=== PATIENT | male | born 1970 | race Caucasian/White ===

== ENCOUNTER 2016-08-08 08:56 | Emergency (ER) | payer BC ==
[2016-08-08 09:18] VITALS: BP 158/109
--- OUTSIDE RECORDS SUMMARY | 2016-08-08 10:16 | XMS REPORT | Continuity of Care Document ---
:1970 Author Organization [facility] ([facility]) Address [address] [place] [address] Phone [phone] Care Team Providers Name Role Phone Maurisio Méndez Primary Care Provider [phone] Source Comments This disclosure is being made pursuant to the Care Everywhere program, applicable federal and state laws, and may not contain all informaitonavailable regarding this patient.[facility] ([facility]) Active Allergies and Adverse Reactions Not on File Current Medications Not on file Active Problems Problem Noted Date Pain in limb 07/28/2007 Social History Tobacco Use Types Packs/Day Years Used Date Never Assessed Last Filed Vital Signs Vital Sign Reading Time Taken Blood Pressure - - Pulse - - Temperature - - Respiratory Rate - - Height 1.803 m (5' 10.98") 07/21/2000 3:18 PM CDT Weight 99.796 kg (220 lb 0.2 oz) 07/21/2000 3:18 PM CDT Body Mass Index 30.7 07/21/2000 3:18 PM CDT Oxygen Saturation - - Plan of Care Health Maintenance Due Date Last Done Comments Hepatitis B Vaccine (1 of 3 - Primary Series) 1970 Tdap Vaccine 1979 Lipid Disorder Screening 1986 MMR Vaccine 1986 Td Vaccine 1986 Influenza Vaccine: Seasonal (#1) 10/23/2015 Results from Last 3 Months Not on file
[2016-08-08 10:31] LABS: Hematocrit 44.1 % (42.0-52.0); Hemoglobin 16.3 gm/dL (13.5-18.0); Mean Cell Volume 86.5 fl (78-100); Mean Platelet Volume 9.3 fl (6.0-9.5); Neutrophil # 3.3 K/mm3 (1.3-6.0); Neutrophil % 62.1 % (42-75.0); Platelet Count 192 K/mm3 (150-450); Red Cell Distribution Width 12.3 % (11.5-14.0); White Blood Count 5.4 K/mm3 (4.0-10.5)
[2016-08-08 10:46] LABS: Urine Bilirubin Negative (NEGATIVE); Urine Blood Negative /ul (NEGATIVE); Urine Ketone Negative (NEGATIVE); Urine Nitrite Negative (NEGATIVE); Urine Protein 15 mg/dL (NEGATIVE); Urine Specific Gravity 1.025 SP.GR. (1.005-1.030); Urine Urobilinogen Normal (NORMAL)
[2016-08-08 10:54] LABS: Urine Appearance Clear; Urine Color Dark Yellow
[2016-08-08 10:55] LABS: ALT 67 U/L (19-67); AST 33 U/L (0-48); Albumin * 3.9 gm/dl (3.4-5.0); Alkaline Phosphatase * 113 U/L (50-170); Anion Gap 8.9 mmol/L (6.8-13.8); BUN/Creatinine Ratio 11.8 (9.0-21.6); Bilirubin, Total 0.5 mg/dL (0.0-1.1); Blood Urea Nitrogen 11 mg/dL (6-23); Ca. Corrected For Albumin 8.5 mg/dL (8.4-10.2); Calcium * 8.7 mg/dL (7.9-10.9); Chloride 103 mmol/L (97-106); Glucose * 103 mg/dL (70-110); Potassium 3.9 mmol/L (3.4-4.6); Salicylate Less than 2.8 mg/dL (2.8-20.0); Sodium 139 mmol/L (132-142); TSH * 1.781 uIU/mL (0.358-3.74); Total Protein 7.7 gm/dL (6.2-8.2)
[2016-08-08 10:55] LABS: Urine Bacteria None Seen; Urine RBC None Seen /hpf (0-5); Urine WBC 0-5 /hpf (0-5)
[2016-08-08 10:58] LABS: Cocaine Ur Negative (NEGATIVE); Urine Barbiturate Negative (NEGATIVE); Urine Benzodiazepines Negative (NEGATIVE); Urine Opiates Negative (NEGATIVE); Urine PCP Negative (NEGATIVE); Urine THC Negative (NEGATIVE)
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
== END 2016-08-08 14:18 | disposition home or self-care (01) ==
LOC: ER 08:56
DX: F32.9 Major depressive disorder, single episode, unspecified (principal)
CPT/HCPCS: 36415; 80053; 80307; 81001; 84443; 85025; 99284; G0480; G0481

== ENCOUNTER 2016-09-09 22:46 | Emergency (ER) | payer BC ==
[2016-09-09 23:54] LABS: Hematocrit 43.2 % (42.0-52.0); Hemoglobin 15.8 gm/dL (13.5-18.0); Mean Cell Volume 86.7 fl (78-100); Mean Corpuscular Hemoglobin 31.7 pg (27-31); Mean Corpuscular Hgb Conc 36.6 g/dl (32-36); Mean Platelet Volume 9.3 fl (6.0-9.5); Neutrophil % 59.6 % (42-75.0); Platelet Count 238 K/mm3 (150-450); Red Blood Count 4.98 M/mm3 (4.7-6.0)
[2016-09-10 00:22] LABS: ALT 57 U/L (19-67); AST 41 U/L (0-48); Albumin * 3.8 gm/dl (3.4-5.0); Alkaline Phosphatase * 98 U/L (50-170); Anion Gap 13.9 mmol/L (6.8-13.8); Bilirubin, Total 0.3 mg/dL (0.0-1.1); Blood Urea Nitrogen 11 mg/dL (6-23); Ca. Corrected For Albumin 8.5 mg/dL (8.4-10.2); Calcium * 8.7 mg/dL (7.9-10.9); Carbon Dioxide 25.5 mmol/L (24-32.6); Chloride 105 mmol/L (97-106); Glucose * 107 mg/dL (70-110); Potassium 3.4 mmol/L (3.4-4.6); Salicylate Less than 2.8 mg/dL (2.8-20.0); Sodium 141 mmol/L (132-142); TSH * 1.259 uIU/mL (0.358-3.74); Total Protein 7.6 gm/dL (6.2-8.2)
[2016-09-10 00:42] LABS: Urine Bilirubin Negative (NEGATIVE); Urine Blood Negative /ul (NEGATIVE); Urine Ketone Negative (NEGATIVE); Urine Nitrite Negative (NEGATIVE); Urine Protein Negative (NEGATIVE); Urine Specific Gravity <=1.005 SP.GR. (1.005-1.030); Urine Urobilinogen Normal (NORMAL)
[2016-09-10 00:47] LABS: Urine Appearance Clear; Urine Color Pale Yellow
[2016-09-10 00:51] LABS: Urine Bacteria None Seen; Urine RBC None Seen /hpf (0-5); Urine WBC None Seen /hpf (0-5)
[2016-09-10 01:01] LABS: Cocaine Ur Negative (NEGATIVE); Urine Barbiturate Negative (NEGATIVE); Urine Benzodiazepines Negative (NEGATIVE); Urine Opiates Negative (NEGATIVE); Urine PCP Negative (NEGATIVE); Urine THC Negative (NEGATIVE)
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
[2016-09-10 07:40] VITALS: BP 137/74
== END 2016-09-10 08:52 | disposition home or self-care (01) ==
LOC: ER 22:46
DX: F10.221 Alcohol dependence with intoxication delirium (principal); R45.851 Suicidal ideations; F32.9 Major depressive disorder, single episode, unspecified; Z87.891 Personal history of nicotine dependence
CPT/HCPCS: 36415; 80053; 80307; 81001; 84443; 85025; 99282; G0480; G0481

== ENCOUNTER 2016-11-12 15:42 | Emergency (ER) | payer BC ==
--- NOTE | 2016-11-12 16:45 | ERNOTE ---
Lower Extremity HPI - Narrative Date of Service: 11/12/16 - General Lower Extremities Pain: knee: left Time Seen by Provider: 11/12/16 16:22 Source: patient Exam Limitations: no limitations - Immun/Allergies/Home Medications Immunizations: IMMUNIZATION HX Immunizations Up to Date Yes History of Influenza Vaccine No Hx Pneumococcal Vaccination No Allergies/Adverse Reactions: Allergies Allergy/AdvReac Type Severity Reaction Status Date / Time No Known Allergies Allergy Verified 11/12/16 15:50 Home Medications: HOME MEDICATIONS oxyCODONE HCL/ACETAMINOPHEN [Percocet 5 MG/325 MG] 1 tab PO Q4H PRN #10 tab [Last Taken Unknown] - History of Present Illness Narrative: Pt. comes in with c/o L knee pain for three days and an open sore on his BKA stump for three weks that his primary has been treating and states that as soon as he ends treatment the sore returns. Pt. denies any fevers, recent illness or injury and states taht pain feels similar t pain that he has had in the past and is treated with a burst of percocet and resolves with this. Review of Systems - Review of Systems Constitutional: Present: no symptoms reported. Absent: recent illness, fever, chills, weakness, fatigue, malaise EYE: Present: no symptoms reported ENT: Present: no symptoms reported Respiratory: Present: no symptoms reported. Absent: shortness of breath, cough , wheezing Cardiology: Present: no symptoms reported. Absent: chest pain, palpitations, edema Gastrointestinal/Abdominal: Present: no symptoms reported. Absent: nausea, vomiting, diarrhea Genitourinary: Present: no symptoms reported. Absent: frequency, decreased urinary output Musculoskeletal: Present: joint pain - L knee. Absent: back pain Skin: Present: lesions - distal L leg stump pressure ulcer partial thickness open with yellow crusting drainage. Neurological: Present: no symptoms reported. Absent: headache, dizziness/light- headedness, numbness, tingling All Other Systems: All systems neg except as marked - Patient's Past Medical History Patient History - Medical: No pertinent hx, Depression Patient History - Cardiac/Respiratory: No pertinent hx Patient History - Cancer: No Hx of Cancer Patient History - Surgical Procedures: Amputation, Other Patient History - Other: None - Social History Living Situations: home Abuse History: No History of abuse Psych History: No pertinent hx, Hx of Anxiety, Hx of Depression Smoking Status: Never smoker Alcohol Use: occasionally Drug Use: none - Immunizations Immunizations Up to Date: Yes Hx Pneumococcal Vaccination: No History of Influenza Vaccine: No Physical Exam - Physical Exam General Appearance: Present: wd/wn, alert, no apparent distress Head Exam: Present: normal inspection, no evidence of injury Eye Exam: Normal inspection: bilateral Respiratory: Present: no respiratory distress, normal breath sounds, no accessory muscle use, chest nontender, lungs clear Cardiovascular/Chest: Present: regular rate, rhythm, no murmur, normal peripheral pulses Back Exam: Present: normal inspection, normal range of motion, no CVA tenderness , no vertebral tenderness Extremity Exam: Present: normal range of motion, joint swelling - L latral knee , other - softtissue swelling, redness and satge 2 pressure ulcer diastal stump with crusting yellow drainage Neurological Exam: Present: alert, oriented, normal mood/affect, no motor/ sensory deficits Skin Exam: Present: normal color, warm/dry. Absent: pallor, skin rash ED Progress - Date and Time Seen: Date and Time: 11/12/16 16:42 Pt. gel stump shaper with defect in it that is the same place as the pressure ulcer on his stump therefore I feel that the stump shaper has to do with the injury to the stump. Will write script for new stump shaper and give him a days worth of narcotics. - Vital Signs Patient's Vital Signs:: I have reviewed the patient's vital signs. Vital Signs: Vital Signs 11/12/16 15:47 Temperature 36.0 C L Pulse Rate 94 Respiratory 16 Rate Blood Pressure 138/99 O2 Sat by Pulse 98 Oximetry - Progress/Reassessment Chief Complaint: Lower Extremity Pain/ Injury Departure Clinical Impression: Phantom pain after amputation of lower extremity, Pressure ulcer caused by device - Departure Disposition: Home self-care Condition: Good Instructions: How to Prevent Pressure Injuries, Living With an Amputation, Neuropathic Pain Additional Instructions: please follow up with prosthestatis tomorrow and follow up with PCP tomorrow to discuss pain management and get new gel stump shaper. Referrals: Maurisio Millan MD [Primary Care Provider] - Prescriptions: oxyCODONE HCL/ACETAMINOPHEN [Percocet 5 MG/325 MG] 1 tab PO Q4H PRN #10 tab PRN Reason: Pain
[2016-11-12 16:46] LABS: Hematocrit 49.9 % (42.0-52.0); Mean Cell Volume 86.5 fl (78-100); Mean Corpuscular Hemoglobin 31.2 pg (27-31); Mean Corpuscular Hgb Conc 36.1 g/dl (32-36); Mean Platelet Volume 9.3 fl (6.0-9.5); Neutrophil # 3.7 K/mm3 (1.3-6.0); Neutrophil % 61.9 % (42-75.0); Platelet Count 210 K/mm3 (150-450); Red Blood Count 5.77 M/mm3 (4.7-6.0); Red Cell Distribution Width 12.5 % (11.5-14.0)
[2016-11-12 16:58] LABS: Albumin * 3.8 gm/dl (3.4-5.0); Anion Gap 13.9 mmol/L (6.8-13.8); BUN/Creatinine Ratio 14.3 (9.0-21.6); Bilirubin, Total 0.5 mg/dL (0.0-1.1); Ca. Corrected For Albumin 9.1 mg/dL (8.4-10.2); Calcium * 9.3 mg/dL (7.9-10.9); Potassium 3.9 mmol/L (3.4-4.6); Total Protein 7.6 gm/dL (6.2-8.2)
[2016-11-12 17:55] VITALS: BP 152/99
== END 2016-11-12 17:48 | disposition home or self-care (01) ==
LOC: ER 15:42
DX: G54.6 Phantom limb syndrome with pain (principal); L89.899 Pressure ulcer of other site, unspecified stage; T87.89 Other complications of amputation stump; Z89.612 Acquired absence of left leg above knee

== ENCOUNTER 2017-02-22 18:03 | Emergency (ER) | payer BC ==
[2017-02-22] MEDS ORDERED: KETOROLAC TROMETHAMINE 60 MG/2 ML VIAL IM ONE ×2 (18:34→18:35)
[2017-02-22] MEDS ORDERED: ORPHENADRINE CITRATE 30 MG/ML VIAL IM ONE (18:34)
[2017-02-22] MEDS ORDERED: ORPHENADRINE CITRATE 30 MG/ML VIAL ONE (18:35)
--- NOTE | 2017-02-22 18:43 | ERNOTE ---
Back Pain ER HPI Date of Service: 02/22/17 Presenting Symptoms: injury/pain to back Time Seen by Provider: 02/22/17 18:23 Source: patient, RN notes reviewed Exam Limitations: no limitations Immunizations: IMMUNIZATION HX Immunizations Up to Date No: unknown History of Influenza Vaccine No Hx Pneumococcal Vaccination No Allergies/Adverse Reactions: Allergies No Known Allergies Allergy (Verified 11/12/16 15:50) Home Medications: HOME MEDICATIONS Cyclobenzaprine HCl [Flexeril] 10 mg PO TID PRN #20 tab 02/22/17 [Last Taken Unknown] oxyCODONE HCL/ACETAMINOPHEN [Percocet 5 MG/325 MG] 1 - 2 tab PO Q6H PRN #16 tab 02/22/17 [Last Taken Unknown] Narrative: 46 year old male presents to the ED from home with pain in his left flank region that began abruptly when he sneezed approximately 2 hours ago. He reports feeling a ripping sensation at the time. He has not taken anything for pain. Date (Duration): 02/22/17 Time (Timing): 16:00 Modifying Factors - (Improves): Reports: nothing Modifying Factors - (Worsens): Reports: cough/deep breaths Prior Treament: Denies: recently seen, similar symptoms before Review of Systems - Review of Systems Constitutional: Absent: recent illness, fever, chills EYE: Present: no symptoms reported ENT: Present: no symptoms reported Respiratory: Absent: shortness of breath, cough Cardiology: Absent: chest pain, syncope Gastrointestinal/Abdominal: Absent: nausea, abdominal pain Genitourinary: Absent: dysuria, hematuria Musculoskeletal: Present: muscle pain. Absent: neck pain, joint pain, joint swelling Skin: Absent: rash, lesions, lumps, change in color Neurological: Absent: weakness, numbness, tingling Endocrine: Present: no symptoms reported Hematologic/Lymphatic: Present: no symptoms reported Psych: Present: no symptoms reported - Patient's Past Medical History Patient History - Medical: Chronic Pain, Depression, Obesity Patient History - Cardiac/Respiratory: No pertinent hx Patient History - Cancer: No Hx of Cancer Patient History - Surgical Procedures: Amputation, Other, Orthopedic Patient History - Other: None - Family History Father Family History - Medical: No pertinent hx Family History - Cardiac/Respiratory: Coronary Heart Disease Family History - Cancer: No pertinent family hx - Social History Living Situations: significant other Abuse History: No History of abuse Psych History: Hx of Anxiety, Hx of Depression Smoking Status: Former smoker Have you smoked in the past 12 months: No Do you dip or chew tobacco: No Patient requests Smoking Cessation Consult: No Initiate information on Smoking Cessation: No Alcohol Use: occasionally Drug Use: none - Immunizations Immunizations Up to Date: No - unknown Hx Pneumococcal Vaccination: No History of Influenza Vaccine: No Physical Exam - Physical Exam General Appearance: Present: wd/wn, alert, no apparent distress - at rest, appears uncomfortable with coughing, splints left side Head Exam: Present: normal inspection, no evidence of injury Neck: Present: normal inspection, nontender, supple, full range of motion Respiratory: Present: no respiratory distress, normal breath sounds, no accessory muscle use, lungs clear, chest tenderness - Left lower lateral ribs Cardiovascular/Chest: Present: regular rate, rhythm, no murmur Extremity Exam: Present: normal inspection, normal range of motion, no edema Neurological Exam: Present: alert, oriented, normal mood/affect, no motor/ sensory deficits Skin Exam: Present: normal color, warm/dry ED Progress - Vital Signs Patient's Vital Signs:: I have reviewed the patient's vital signs. Vital Signs: Vital Signs 02/22/17 18:10 Temperature 36.9 C Pulse Rate 98 Respiratory 18 Rate Blood Pressure 148/105 O2 Sat by Pulse 95 Oximetry - Progress/Reassessment Chief Complaint: Back Pain Progress:: Improved Departure Clinical Impression: Rib sprain Qualifiers: Encounter type: initial encounter Qualified Code(s): S23.41XA - Sprain of ribs , initial encounter - Departure Disposition: Home self-care Condition: Stable Instructions: Muscle Strain, [id number] Additional Instructions: Take ibuprofen 600 mg every 6 hours as needed for pain/inflammation, take with food Ice to sore areas Follow up as needed Referrals: Maurisio Millan MD [Primary Care Provider] - Prescriptions: Cyclobenzaprine HCl [Flexeril] 10 mg PO TID PRN #20 tab PRN Reason: MUSCLE SPASMS oxyCODONE HCL/ACETAMINOPHEN [Percocet 5 MG/325 MG] 1 - 2 tab PO Q6H PRN #16 tab PRN Reason: Pain
[2017-02-22] MEDS ORDERED: oxyCODONE HCL/ACETAMINOPHEN 1 TAB TABLET PO ONE (18:59)
[2017-02-22] MEDS ORDERED: CYCLOBENZAPRINE HCL 10 MG TABLET PO ONE (18:59)
[2017-02-22] MEDS ORDERED: CYCLOBENZAPRINE HCL 10 MG TABLET ONE (19:02)
[2017-02-22] MEDS ORDERED: oxyCODONE HCL/ACETAMINOPHEN 1 TAB TABLET ONE (19:02)
[2017-02-22 19:10] VITALS: BP 138/73
== END 2017-02-22 19:09 | disposition home or self-care (01) ==
LOC: ER 18:03
DX: S23.41XA Sprain of ribs, initial encounter (principal)